=== PATIENT | female | born 1955 | race Caucasian/White ===

== ENCOUNTER → 2016-07-17 | Outpatient (CLI) | payer OTHER ==
[~2016-07-17] MED LIST: ASPI325T PO; CITA20TA4 PO; ENAL5TAB PO; ESTR0.5T PO; ESTR1TAB PO; OMEP20CA2; OMEP20CA2 PO; PRIL20CA PO; ROSU20 PO
[2016-07-17 12:02] LABS: AUTOMATED NEUTROPHIL # 3.5 TH/MM3 (1.8-7.7); BASOPHIL % 0.9 % (0.0-2.0); EOSINOPHIL # 0.1 TH/MM3 (0-0.4); EOSINOPHIL % 1.1 % (0.0-4.0); HEMATOCRIT 40.4 % (35.0-46.0); HEMO FLAGS DIFF FINAL; LYMPH % 16.2 % (9.0-44.0); LYMPHOCYTE # 0.8 TH/MM3 (1.0-4.8); MEAN CELL VOLUME 83.8 FL (80.0-100.0); MEAN CORPUSCULAR HEMOGLOBIN 27.8 PG (27.0-34.0); MEAN CORPUSCULAR HGB CONC 33.2 % (32.0-36.0); MONO % 9.2 % (0.0-8.0); NEUT % 72.6 % (16.0-70.0); PLATELET COUNT 224 TH/MM3 (150-450); RED BLOOD COUNT 4.82 MIL/MM3 (4.00-5.30); RED CELL DISTRIBUTION WIDTH 12.5 % (11.6-17.2); WHITE BLOOD COUNT 4.8 TH/MM3 (4.0-11.0)
[2016-07-17 12:03] LABS: BACTERIA, URINE RARE /hpf; BLOOD, URINE NEG (NEG); GLUCOSE,URINE NEG (NEG); KETONE, URINE NEG (NEG); MUCUS URINE FEW /lpf (OCC); NITRITE,URINE NEG (NEG); PH, URINE 7.5 (5.0-8.5); SQUAMOUS EPITHELIAL CELL URINE <1 /hpf (0-5); URINE COLOR YELLOW (YELLW/STRAW)
[2016-07-17 12:15] LABS: ALKALINE PHOSPHATASE 42 U/L (45-117); ALT (GPT) 32 U/L (10-53); ANION GAP 9 MEQ/L (5-15); AST (GOT) 28 U/L (15-37); BICARBONATE 27.9 MEQ/L (21.0-32.0); BLOOD UREA NITROGEN 8 MG/DL (7-18); CHLORIDE 100 MEQ/L (98-107); GLOMERULAR FILTRATION RATE 78 ML/MIN (>89); GLUCOSE,FASTING 100 MG/DL (74-99); HDL CHOLESTEROL 116.6 MG/DL (40.0-60.0); LDL CHOLESTEROL 48 MG/DL (0-99); SODIUM (NA) 137 MEQ/L (136-145); TOTAL BILIRUBIN ADULT 0.3 MG/DL (0.2-1.0)
== END ==
LOC: CLAB 11:22
PROVIDERS: ATTEND Family Medicine
DX: I10 Essential (primary) hypertension (principal); R25.2 Cramp and spasm; E78.5 Hyperlipidemia, unspecified; Z95.5 Presence of coronary angioplasty implant and graft
CPT/HCPCS: 36415; 80053; 80061; 81001; 83735; 85025

== ENCOUNTER → 2016-08-29 | Outpatient (CLI) | payer OTHER ==
[~2016-08-29] MED LIST changes: -ESTR0.5T PO; -PRIL20CA PO
[2016-08-29 12:10] LABS: AUTOMATED NEUTROPHIL # 4.2 TH/MM3 (1.8-7.7); BASOPHIL # 0.1 TH/MM3 (0-0.2); BASOPHIL % 0.9 % (0.0-2.0); EOSINOPHIL # 0.2 TH/MM3 (0-0.4); EOSINOPHIL % 3.2 % (0.0-4.0); HEMATOCRIT 39.8 % (35.0-46.0); HEMO FLAGS DIFF FINAL; LYMPH % 15.6 % (9.0-44.0); LYMPHOCYTE # 0.9 TH/MM3 (1.0-4.8); MEAN CELL VOLUME 84.2 FL (80.0-100.0); MEAN CORPUSCULAR HEMOGLOBIN 28.4 PG (27.0-34.0); MEAN CORPUSCULAR HGB CONC 33.8 % (32.0-36.0); MONO % 9.7 % (0.0-8.0); NEUT % 70.6 % (16.0-70.0); PLATELET COUNT 261 TH/MM3 (150-450); RED BLOOD COUNT 4.73 MIL/MM3 (4.00-5.30); RED CELL DISTRIBUTION WIDTH 12.5 % (11.6-17.2)
[2016-08-29 12:14] LABS: BLOOD, URINE NEG (NEG); COMMENT (UR) CULT NOT INDICATED; CULTURE IF INDICATED CULT NOT INDICATED; GLUCOSE,URINE NEG (NEG); KETONE, URINE NEG (NEG); MUCUS URINE FEW /lpf (OCC); NITRITE,URINE NEG (NEG); PH, URINE 6.5 (5.0-8.5); SQUAMOUS EPITHELIAL CELL URINE <1 /hpf (0-5); URINE COLOR YELLOW (YELLW/STRAW)
[2016-08-29 12:39] LABS: ALKALINE PHOSPHATASE 59 U/L (45-117); ALT (GPT) 30 U/L (10-53); ANION GAP 5 MEQ/L (5-15); AST (GOT) 29 U/L (15-37); BICARBONATE 29.2 MEQ/L (21.0-32.0); BLOOD UREA NITROGEN 12 MG/DL (7-18); CHLORIDE 102 MEQ/L (98-107); GLOMERULAR FILTRATION RATE 79 ML/MIN (>89); GLUCOSE,FASTING 81 MG/DL (74-99); POTASSIUM 4.3 MEQ/L (3.5-5.1); SODIUM (NA) 136 MEQ/L (136-145); TOTAL BILIRUBIN ADULT 0.4 MG/DL (0.2-1.0)
--- NOTE | 2016-08-30 06:22 | EKG ---
Date Performed: 08/29/2016 Time Performed: 10:41:07 PTAGE: 60 years EKG: Sinus rhythm LOW QRS VOLTAGE IN PRECORDIAL LEADS BORDERLINE ECG NO PREVIOUS TRACING DOCTOR: Magnus Rodney Interpretating Date/Time 08/30/2016 06:21:59
== END ==
LOC: CPRE 10:16
PROVIDERS: ATTEND Obstetrics & Gynecology Gynecology
DX: Z01.810 Encounter for preprocedural cardiovascular examination (principal); Z01.812 Encounter for preprocedural laboratory examination; N99.3 Prolapse of vaginal vault after hysterectomy; R94.31 Abnormal electrocardiogram [ECG] [EKG]
CPT/HCPCS: 36415; 80053; 81001; 85025; 93005

== ENCOUNTER → 2016-09-06 | Day surgery (SDC) | payer OTHER ==
--- NOTE | 2016-08-29 10:38 | MH ---
cc: JULIETA CARDENAS MD, LANE DATE OF ADMISSION 09/06/2016 DATE OF 1955 REASON FOR ADMISSION Vaginal support and repair HISTORY OF PRESENT ILLNESS The patient is a 60-year-old white female 3, para 2 status post prior supracervical hysterectomy who has issues with pelvic pressure discomfort and stage II pelvic organ prolapse predominately apical and anterior. She has declined conservative measures and wants to proceed with surgery for repair. PAST MEDICAL HISTORY 1. Coronary artery vascular disease 2. Hypertension 3. Hypercholesterolemia MEDICATIONS 1. Omeprazole 20 mg daily 2. Celexa 20 mg daily 3. Estradiol 1 mg daily 4. Aspirin 325 mg daily 5. Enalapril 10 mg daily SOCIAL HISTORY A 30 pack-year smoking history, quit in 2005 after [place]. OBSTETRICAL HISTORY Two vaginal deliveries. PAST SURGICAL HISTORY Laparoscopic supracervical hysterectomy in 1999, cardiac stent x3 in 2005. ALLERGIES AMOXICILLIN CAUSES RASH. FAMILY HISTORY Noncontributory OBSTETRICAL HISTORY Two vaginal deliveries. GYNECOLOGIC HISTORY No STD's or abnormal Pap smears. Hysterectomy for benign condition. REVIEW OF SYSTEMS As above, no chest pain, orthopnea, or PND. No nausea, vomiting, fever or chills. No vaginal bleeding or discharge. No significant stress incontinence. Does have issues with pelvic pressure/discomfort. PHYSICAL EXAM The patient is afebrile. Vital signs are stable blood pressure 120/70, height 5 feet 4 inches, weight is 147, BMI is 25. GENERAL: Patient is alert and oriented in no acute distress. No sign of cognitive dysfunction or depression. HEENT: Within normal limits. NECK: Supple. No JVD. CHEST: Clear. HEART: Regular rate and rhythm. ABDOMEN: Soft and nontender. No hepatosplenomegaly. No CVA tenderness. PELVIC: Exam in the office shows POP-Q score: Aa is 0, Ap is -1. Point C is 0. Genital hiatus is 6. Perineal body is 4. Total vaginal length is 10. Levator strength is 1/5. No significant postvoid residual. Sacral nerve reflexes are normal. EXTREMITIES: Normal. Skin without rashes. NEUROLOGIC: Exam nonfocal. No DVT signs. ASSESSMENT Patient with vaginal prolapse, anterior compartment apical compartment stage II. The patient and I discussed options for management and treatment. She is aware of the risks, benefits, and alternatives to the planned procedure. She is aware of the possibility of dyspareunia, failure of repair, new onset bladder incontinence, nerve and vascular damage. She has made an informed choice to proceed. At this point, we used DVT prophylaxis with sequential compression device and antibiotic prophylaxis Cleocin 900 mg and Flagyl 60 mg IV. Anticipate outpatient procedure. MD MEÑO Walsh/KATJA /10:14 AM /10:26 AM
[~2016-09-06] VITALS: Ht 162.6 cm; Wt 66.3 kg
[~2016-09-06] MED LIST changes: +ACETAMINOPHEN 1000 MG/100 ML VIAL IV ONE; +CLINDAMYCIN PHOS 900 MG/6 ML VIAL ONE; +DEXAMETHASONE SOD PHOS 4 MG/ML VIAL ONE; +DO NOT ADM ANY ANTICOAGULANT DRUGS PRN; +ESTROGENS CONJUGATED VAG CREA 15 APPL/30 GM TUBE ONE; +FAMOTIDINE 20 MG/2 ML VIAL ONE; +FLUORESCEIN SOD 10% SOLN 500 MG/5 ML AMP IV ONE; +KETOROLAC TROMETHAMINE 30 MG/ML (IVP) VIAL IV PUSH PRN; +KETOROLAC TROMETHAMINE 60 MG/2 ML (IM) VIAL IM ONE; +LACTATED RINGER'S 1000 ML INJ 1,000 ML IV ONE; +LIDOCAINE 1%/EPINEPHrine 1:100,000 SOLN 20 ML VIAL ONE; +METHYLENE BLUE 10 MG/ML VIAL OTHER ONE; +MIDAZOLAM HCL 2 MG/2 ML VIAL ONE; +NEOSTIGMINE 3 MG/3 ML SYR IV ONE; -OMEP20CA2; +ONDANSETRON HCL 4 MG/2 ML VIAL IV PUSH ONE; +ONDANSETRON HCL 4 MG/2 ML VIAL IV PUSH PRN; +PHENYLEPH/NS 1000 MCG/10 ML SYR IV ONE; +PILL SPLITTER OTHER PRN; +PROPOFOL 200 MG/20 ML AMP IV ONE; +SODIUM CHLORIDE 0.9% INJ 100 ML ONE; +ePHEDrine/NS 25 MG/5 ML SYR IV ONE; +fentaNYL CITRATE 250 MCG/5 ML AMP ONE; +metroNIDAZOLE 500 MG INJ 100 ML IV ONE; +traMADol HCL 50 MG TAB PO PRN
[2016-09-06 06:42] VITALS: BP 92/61; PULSE 68; RESP 16; TEMP 97.8; O2SAT 96
--- NOTE | 2016-09-06 11:23 | MP ---
cc: JULIETA CARDENAS MD DATE OF SURGERY: 09/06/2016 PREOPERATIVE DIAGNOSIS Pelvic organ prolapse. POSTOPERATIVE DIAGNOSES 1. Cystocele stage II, moderate. 2. Rectocele stage II, moderate. 3. Apical prolapse stage II, moderate. 4. Pigmented vulvar lesion at the vaginal fourchette. PROCEDURE 1. Anterior posterior repair with enterocele. 2. Diagnostic cystoscopy. 3. Biopsy of vulvar lesion. 4. Perineorrhaphy. SURGEON Dr. Cardenas. ANESTHESIA General endotracheal. BLOOD LOSS 25 ccs. URINE OUTPUT 100 ccs. CURRICULUM ASSISTANT PRINCIPAL [facility] staff x2. FLUIDS 1000 ccs of crystalloid. FINDINGS External genitalia, poorly estrogenized, noted pigmented lesion at the fourchette, approximately 2 cm x 5 mm. Anterior posterior compartment defect noted as above. POP-Q score: Aa is +1, Ap is +1. Point C is -1. Total vaginal length is 10. Genital hiatus is 6. Perineal body is 4. On repair Aa is -3, Ap is -3. Point C is -8. Total vaginal length is 8. Genital hiatus is 4. Perineal body is 4. Cystoscopy, normal with ureteral orifices patent x2. Dome and base of bladder normal. Rectal exam normal following repair. SPECIMENS Vaginal fourchette. COMPLICATIONS None. DISPOSITION Recovery room stable. COUNTS Needle, sponge count correct. DRAINS Loyola catheter. ANTIBIOTIC PROPHYLAXIS Flagyl 500 ccs IV, Cleocin 900 ccs IV. DVT PROPHYLAXIS Sequential compression device. TIMEOUT PROCEDURE Time-out procedure per protocol. SUMMARY OF INDICATION AND PROCEDURE The patient with symptomatic pelvic organ prolapse. The patient was taken to the operating theater, prepped and draped in fashion appropriate for planned procedure. She was in dorsal lithotomy position with careful attention paid to placing the legs in stirrups to avoid undue stress to sensitive neurovascular structures. Above findings were noted. Neurovascular integrity was documented. Loyola catheter is placed. Methylene blue was instilled into the bladder. Anterior compartment was noted to be the most significant defect. This area was infiltrated with epinephrine lidocaine solution. Incision was made from the vaginal apex to approximately 1 cm from the meatus of the urethra. The vaginal mucosa was incised and bladder reflected from the vaginal mucosa. There was no spill of methylene blue with dissection. Anterior repair was performed in standard fashion with delayed absorbable suture. Vaginal mucosa was trimmed and then vaginal mucosa was closed with a running 2-0 Vicryl suture in a locking fashion. Anterior compartment was in good position, posterior compartment remained prolapsed. This area was infiltrated with epinephrine lidocaine solution. A midline incision was made, incision was taken from the hymenal remnant to the apex. Rectal tissues were reflected. There was no damage to the rectum and we had one finger in the rectum to give us traction and countertraction. The vaginal mucosa was trimmed after performing the rectocele and enterocele repair in standard fashion. Also added apical support, we used the right side of the coccygeus ligament complex, delayed absorbable suture used in this area. The perineal body was notable for a pigmented lesion at the fourchette, this was excised and perineoplasty performed in standard fashion with good result. Above findings noted. Exam shows good pelvic support following repair, suture line intact, rectal exam normal. Cystoscopy performed using 17-Malaysian bridge, a 70 degree scope. The patient received IV fluorescein 1 cc and above findings noted with documentation of ureteral patency. The patient was taken to the recovery room in stable condition. MD MEÑO Walsh/MELISA /9:34 AM /10:54 AM MTDUlises
[2016-09-06 11:35] VITALS: BP 116/72; PULSE 65; RESP 20; TEMP 97.7; O2SAT 97
== END | disposition home or self-care (01) ==
LOC: HSDC 05:58
PROVIDERS: ATTEND Obstetrics & Gynecology Gynecology
DX: N81.10 Cystocele, unspecified (principal); N81.6 Rectocele; N90.89 Other specified noninflammatory disorders of vulva and perineum; I10 Essential (primary) hypertension; E78.00 Pure hypercholesterolemia, unspecified; I25.10 Atherosclerotic heart disease of native coronary artery without angina pectoris; E78.5 Hyperlipidemia, unspecified; F32.9 Major depressive disorder, single episode, unspecified; K21.9 Gastro-esophageal reflux disease without esophagitis; I25.2 Old myocardial infarction; Z79.82 Long term (current) use of aspirin; Z87.891 Personal history of nicotine dependence; Z95.5 Presence of coronary angioplasty implant and graft; Z88.0 Allergy status to penicillin; Z90.710 Acquired absence of both cervix and uterus
CPT/HCPCS: 56605; 57265; 88302; J0131; J1100; J1885; J2250; J2370; J2405; J2710; J3010; J7120; 88305